=== PATIENT | male | born 1955 | race Hispanic/Latino ===

== ENCOUNTER 2017-08-25 07:59 | Outpatient (CLI) | payer BC | END 2017-08-25 08:00 | disposition home or self-care (01) | LOC: BICMRI 07:59 | PROVIDERS: ATTEND Family Medicine | DX: R51 Headache (principal); M54.2 Cervicalgia; D69.3 Immune thrombocytopenic purpura; M06.9 Rheumatoid arthritis, unspecified | CPT/HCPCS: 70551 ==

== ENCOUNTER 2021-11-20 16:17 | Observation (INO) | payer BC ==
[2021-11-20 16:56] LABS: #Basophils 0.1 thou/uL (0.0-0.2); #Eosinphils 0.2 thou/uL (0.0-0.7); #Monocytes 0.5 thou/uL (0.11-0.59); #Neutrophils 3.4 thou/uL (1.40-6.50); %Basophils 1.2 % (0.0-1.0); %Eosinophils 3.7 % (0.0-10.0); %Lymphocytes 32.1 % (21.0-51.0); Hemoglobin 14.4 g/dL (14.0-18.0); Mean Corpuscular Hemoglobin 30.4 pg (27.0-31.0); Mean Platelet Volume 12.1 fL (7.4-10.4); Platelet Count 126 thou/uL (130-400); RBC Distribution Width 11.8 % (11.5-14.5); Red Blood Cell (RBC) Count 4.75 mill/uL (4.70-6.10); White Blood Cell (WBC) Count 6.1 thou/uL (4.8-10.8)
[2021-11-20 17:18] LABS: Large Platelets SLIGHT; MDiff Complete? YES; RBC Morphology Normal
[2021-11-20 17:19] LABS: ALT (SGPT) 12 U/L (8-55); AST (SGOT) 16 U/L (5-34); Alkaline Phosphatase 76 U/L (40-110); Anion Gap 11 mmol/L (10-20); BUN (Urea Nitrogen) 14 mg/dL (8.4-25.7); Bilirubin, Total 0.6 mg/dL (0.2-1.2); Calc. Creatinine Clearance 0 mL/min (70-130); Calcium 8.9 mg/dL (7.8-10.44); Carbon Dioxide 26 mmol/L (23-31); Chloride 106 mmol/L (98-107); Estimated GFR 82; Globulin 3.5 g/dL (2.4-3.5); Glucose 95 mg/dL (80-115); Potassium 4.4 mmol/L (3.5-5.1); Protein, Total 7.5 g/dL (5.8-8.1); Sodium 139 mmol/L (136-145)
[2021-11-20] MEDS ORDERED: Aspirin Chewable 81 MG TAB ONE (21:32)
[2021-11-20] MEDS ORDERED: Divalproex Sodium 250 MG (DR) TAB ONE (21:44)
[2021-11-20] MEDS ORDERED: levETIRAcetam 500 MG TAB PO SCH (22:00)
[2021-11-20 22:45] LABS: Troponin I Less than 0.010 ng/mL (< 0.028)
[2021-11-20] MEDS ORDERED: Ondansetron PF 4 MG/2 ML Vial IVP PRN (23:12)
[2021-11-20] MEDS ORDERED: Ondansetron ODT 4 MG TAB PO PRN (23:12)
[2021-11-20] MEDS ORDERED: Acetaminophen 325 MG TAB PO PRN (23:12)
[2021-11-20] MEDS ORDERED: Acetaminophen 650 MG Suppository PR PRN (23:12)
[2021-11-21 01:42] VITALS: BMI 27.4
[2021-11-21 01:57] LABS: Troponin I Less than 0.010 ng/mL (< 0.028)
[2021-11-21 05:11] LABS: #Eosinphils 0.2 thou/uL (0.0-0.7); #Monocytes 0.5 thou/uL (0.11-0.59); #Neutrophils 2.2 thou/uL (1.40-6.50); %Basophils 0.9 % (0.0-1.0); %Eosinophils 4.1 % (0.0-10.0); %Monocytes 9.3 % (0.0-10.0); %Neutrophils 44.8 % (42.0-75.0); Hemoglobin 13.8 g/dL (14.0-18.0); Mean Corpuscular HGB CONC 32.5 g/dL (32.0-36.0); Mean Corpuscular Hemoglobin 30.8 pg (27.0-31.0); Mean Platelet Volume 12.5 fL (7.4-10.4); Platelet Count 116 thou/uL (130-400); RBC Distribution Width 11.9 % (11.5-14.5); Red Blood Cell (RBC) Count 4.48 mill/uL (4.70-6.10); White Blood Cell (WBC) Count 4.9 thou/uL (4.8-10.8)
[2021-11-21 05:26] LABS: Anion Gap 15 mmol/L (10-20); BUN (Urea Nitrogen) 16 mg/dL (8.4-25.7); Calc. Creatinine Clearance 80 mL/min (70-130); Carbon Dioxide 23 mmol/L (23-31); Chloride 106 mmol/L (98-107); Potassium 3.7 mmol/L (3.5-5.1); Sodium 140 mmol/L (136-145)
[2021-11-21 05:27] LABS: Calcium 8.4 mg/dL (7.8-10.44); Estimated GFR 86; Glucose 90 mg/dL (80-115)
[2021-11-21] MEDS ORDERED: Enoxaparin Sodium 40 MG/0.4 ML SYRINGE SC SCH (09:00)
[2021-11-21] MEDS ORDERED: levETIRAcetam 500 MG TAB PO SCH ×2 (09:00→21:00)
[2021-11-21 16:50] VITALS: BP 165/78; TEMP 97.7
== END 2021-11-21 17:40 | disposition home or self-care (01) ==
LOC: ERS 16:17 → 2SW 21:57
PROVIDERS: ADMIT Family Medicine; ATTEND Family Medicine
DX: M47.22 Other spondylosis with radiculopathy, cervical region (principal); R00.1 Bradycardia, unspecified; G40.909 Epilepsy, unspecified, not intractable, without status epilepticus; R07.9 Chest pain, unspecified; D69.6 Thrombocytopenia, unspecified; M25.78 Osteophyte, vertebrae; R13.10 Dysphagia, unspecified; I08.3 Combined rheumatic disorders of mitral, aortic and tricuspid valves; M19.90 Unspecified osteoarthritis, unspecified site; E78.5 Hyperlipidemia, unspecified; K21.9 Gastro-esophageal reflux disease without esophagitis; M06.9 Rheumatoid arthritis, unspecified; Z79.899 Other long term (current) drug therapy; Z20.822 Contact with and (suspected) exposure to COVID-19
CPT/HCPCS: 36415; 70450; 72125; 80048; 80053; 84484; 85025; 93005; 93306; 96372; G0378; J1650; U0003; U0005

== ENCOUNTER 2022-06-17 03:56 | Emergency (ER) | payer BC, SELFPAY ==
[2022-06-17] MEDS ORDERED: HYDROcodone/Acetaminophen 5/325 mg Tablet ONE (04:36)
[2022-06-17 05:08] LABS: Hemoglobin 14.7 g/dL (14.0-18.0); Mean Corpuscular HGB CONC 34.3 g/dL (32.0-36.0); Mean Corpuscular Hemoglobin 31.6 pg (27.0-31.0); Mean Corpuscular Volume 92.1 fl (78.0-98.0); RBC Distribution Width 11.9 % (11.5-14.5); Red Blood Cell (RBC) Count 4.65 mill/uL (4.70-6.10); White Blood Cell (WBC) Count 6.2 10x3/uL (4.8-10.8)
[2022-06-17 05:31] LABS: #Eosinphils 0.2 thou/uL (0.0-0.7); #Lymphocytes 2.3 thou/uL (1.20-3.40); #Monocytes 0.5 thou/uL (0.11-0.59); #Neutrophils 3.2 thou/uL (1.40-6.50); %Basophils 0.7 % (0.0-1.0); %Eosinophils 3.6 % (0.0-10.0); %Lymphocytes 36.9 % (21.0-51.0); %Monocytes 7.4 % (0.0-10.0); %Neutrophils 51.3 % (42.0-75.0); Large Platelets SLIGHT; MDiff Complete? YES; Mean Platelet Volume 12.4 fL (7.4-10.4); Platelet Count 120 10x3/uL (130-400); Platelet Morphology Comment Appears Adequate
[2022-06-17 05:33] LABS: ALT (SGPT) 15 U/L (8-55); AST (SGOT) 22 U/L (5-34); Albumin 3.6 g/dL (3.4-4.8); Alkaline Phosphatase 77 U/L (40-110); Anion Gap 14 mmol/L (10-20); BUN (Urea Nitrogen) 22 mg/dL (8.4-25.7); Bilirubin, Total 0.6 mg/dL (0.2-1.2); Calc. Creatinine Clearance 0 mL/min (70-130); Calcium 9.2 mg/dL (7.8-10.44); Carbon Dioxide 24 mmol/L (23-31); Chloride 105 mmol/L (98-107); Estimated GFR 86; Globulin 3.6 g/dL (2.4-3.5); Glucose 92 mg/dL (80-115); Potassium 4.4 mmol/L (3.5-5.1); Protein, Total 7.2 g/dL (5.8-8.1); Sodium 139 mmol/L (136-145)
== END 2022-06-17 06:35 | disposition home or self-care (01) ==
LOC: ERS 03:56
DX: M54.32 Sciatica, left side (principal)
CPT/HCPCS: 36415; 80053; 85025

== ENCOUNTER 2022-07-09 07:55 | Outpatient (CLI) | payer BC | END 2022-07-09 07:56 | disposition home or self-care (01) | LOC: SCSMRI 07:55 | PROVIDERS: ATTEND Family Medicine | DX: M54.40 Lumbago with sciatica, unspecified side (principal); M47.816 Spondylosis without myelopathy or radiculopathy, lumbar region; Z98.890 Other specified postprocedural states | CPT/HCPCS: 72158 ==

== ENCOUNTER 2022-07-27 08:27 | Outpatient (CLI) | payer BC | END 2022-07-27 08:28 | disposition home or self-care (01) | LOC: BICRAD 08:27 | PROVIDERS: ATTEND Neurological Surgery | DX: M47.26 Other spondylosis with radiculopathy, lumbar region (principal); M25.78 Osteophyte, vertebrae | CPT/HCPCS: 72120 ==

== ENCOUNTER 2022-09-02 07:59 | Outpatient (CLI) | payer BC | END 2022-09-02 08:00 | disposition home or self-care (01) | LOC: TBSIIMAG 07:59 | PROVIDERS: ATTEND Neurological Surgery | DX: M48.04 Spinal stenosis, thoracic region (principal); M51.24 Other intervertebral disc displacement, thoracic region | CPT/HCPCS: 72146 ==

== ENCOUNTER 2024-04-01 12:11 | Observation (INO) | payer BC ==
[2024-04-01 13:26] LABS: #Basophils 0.04 10x3/uL (0.0-0.2); %Basophils 0.6 % (0.0-1.0); %Eosinophils 1.8 % (0.0-10.0); %Lymphocytes 27.6 % (21.0-51.0); %Monocytes 5.7 % (0.0-10.0); %Neutrophils 63.8 % (42.0-75.0); Hematocrit 46.5 % (42.0-52.0); Hemoglobin 15.7 g/dL (14.0-18.0); Mean Corpuscular HGB CONC 33.8 g/dL (32.0-36.0); Mean Corpuscular Hemoglobin 30.1 pg (27.0-31.0); Mean Corpuscular Volume 89.1 fL (78.0-98.0); Mean Platelet Volume 13.8 fL (7.4-10.4); Platelet Count 133 10x3/uL (130-400); RBC Distribution Width 12.7 % (11.5-14.5); Red Blood Cell (RBC) Count 5.22 mill/uL (4.70-6.10)
[2024-04-01 13:38] LABS: ALT (SGPT) 11 U/L (8-55); AST (SGOT) 17 U/L (5-34); Albumin 3.7 g/dL (3.4-4.8); Alkaline Phosphatase 72 U/L (40-110); Anion Gap 15 mmol/L (10-20); BUN (Urea Nitrogen) 13 mg/dL (8.4-25.7); Calc. Creatinine Clearance 0 mL/min (70-130); Calcium 8.7 mg/dL (7.8-10.44); Carbon Dioxide 20 mmol/L (23-31); Chloride 107 mmol/L (98-107); Estimated GFR 93; Globulin 3.6 g/dL (2.4-3.5); Glucose 136 mg/dL (80-115); Potassium 3.7 mmol/L (3.5-5.1); Protein, Total 7.3 g/dL (5.8-8.1); Sodium 138 mmol/L (136-145)
[2024-04-01 13:42] LABS: Troponin I Less than 0.010 ng/mL (< 0.028)
[2024-04-01 13:47] LABS: Platelet Adequacy Comment Platelets Normal
[2024-04-01] MEDS ORDERED: Aspirin Chewable 81 MG TAB ONE (14:01)
[2024-04-01] MEDS ORDERED: Calcium Carbonate 500 MG ChewTAB PO PRN (16:31)
[2024-04-01] MEDS ORDERED: Acetaminophen 325 MG TAB PO PRN (16:31)
[2024-04-01] MEDS ORDERED: Senokot S 8.6-50 MG TAB PO PRN (16:31)
[2024-04-01] MEDS ORDERED: Acetaminophen 650 MG Suppository PR PRN (16:31)
[2024-04-01] MEDS ORDERED: Nitroglycerin 0.4 MG TAB (25 Tab Bottle) SL PRN (16:31)
[2024-04-01 17:01] LABS: Magnesium 1.8 mg/dL (1.6-2.6)
[2024-04-01] MEDS: Atorvastatin Calcium 40 MG TAB PO SCH (20:29)
[2024-04-01] MEDS: Divalproex Sodium DR 500 MG TAB PO SCH (20:29)
[2024-04-01] MEDS: levETIRAcetam 500 mg/5 ml Oral Solution PO SCH (20:29)
[2024-04-01 20:42] LABS: Troponin I Less than 0.010 ng/mL (< 0.028)
[2024-04-01 21:17] LABS: Influenza A by NAA Not Detected (NotDetected); Influenza B by NAA Not Detected (NotDetected); RSV by NAA Not Detected (NotDetected); SARS-CoV-2 NAA Rapid Test Not Detected (NotDetected)
[2024-04-02 00:06] LABS: Troponin I Less than 0.010 ng/mL (< 0.028)
[2024-04-02 07:31] LABS: Anion Gap 11 mmol/L (10-20); BUN (Urea Nitrogen) 14 mg/dL (8.4-25.7); Calc. Creatinine Clearance 90 mL/min (70-130); Calcium 8.5 mg/dL (7.8-10.44); Carbon Dioxide 25 mmol/L (23-31); Chloride 106 mmol/L (98-107); Estimated GFR 94; Glucose 97 mg/dL (80-115); Potassium 4.4 mmol/L (3.5-5.1); Sodium 138 mmol/L (136-145)
[2024-04-02 07:32] LABS: #Basophils 0.03 10x3/uL (0.0-0.2); %Basophils 0.5 % (0.0-1.0); %Eosinophils 2.2 % (0.0-10.0); %Lymphocytes 31.6 % (21.0-51.0); %Monocytes 6.9 % (0.0-10.0); %Neutrophils 57.8 % (42.0-75.0); Hematocrit 44.5 % (42.0-52.0); Hemoglobin 14.6 g/dL (14.0-18.0); Mean Corpuscular HGB CONC 32.9 g/dL (32.0-36.0); Mean Corpuscular Hemoglobin 29.7 pg (27.0-31.0); Mean Corpuscular Volume 90.4 fL (78.0-98.0); Platelet Count 130 10x3/uL (130-400); RBC Distribution Width 12.8 % (11.5-14.5); Red Blood Cell (RBC) Count 4.88 mill/uL (4.70-6.10)
[2024-04-02 08:02] VITALS: BP 126/71; TEMP 97.8
[2024-04-02] MEDS: levETIRAcetam 500 MG TAB PO SCH (08:51)
[2024-04-02] MEDS: Enoxaparin 40 MG (0.4 mL) SYRINGE SC SCH (08:55)
[2024-04-02] MEDS: Losartan 25 MG TAB PO SCH (08:55)
[2024-04-02] MEDS: Aspirin Chewable 81 MG TAB PO SCH (08:55)
[2024-04-02] MEDS ORDERED: Aspirin 81 mg Enteric Coated Tablet PO SCH (09:00)
[2024-04-02] MEDS ORDERED: Regadenoson 0.4 MG/5 ML SYRINGE ONE (10:12)
[2024-04-03] MEDS ORDERED: FLU (Fluad Triv) TS24-25 (65UP)/MF59C/PF 45 MCG/0.5 ML Syringe IM ONE (09:00)
== END 2024-04-02 16:02 | disposition home or self-care (01) ==
LOC: ERS 12:11 → ERHOLD 16:01 → OBS 17:19
PROVIDERS: ADMIT Internal Medicine; ATTEND Internal Medicine
DX: R07.89 Other chest pain (principal); R06.02 Shortness of breath; I10 Essential (primary) hypertension; E78.5 Hyperlipidemia, unspecified; R00.1 Bradycardia, unspecified; G40.909 Epilepsy, unspecified, not intractable, without status epilepticus; K21.9 Gastro-esophageal reflux disease without esophagitis; E55.9 Vitamin D deficiency, unspecified; M06.9 Rheumatoid arthritis, unspecified; D69.6 Thrombocytopenia, unspecified; Z98.890 Other specified postprocedural states; Z79.82 Long term (current) use of aspirin; Z79.899 Other long term (current) drug therapy
CPT/HCPCS: 0241U; 36415; 71045; 78452; 80048; 80053; 83735; 83880; 84484; 85025; 85379; 93005; 93017; 96372; A9502; G0378; J1650; J2785

== ENCOUNTER 2024-11-30 08:21 | Outpatient (CLI) | payer MEDICARE | END 2024-11-30 08:22 | disposition home or self-care (01) | LOC: BICCT 08:21 | PROVIDERS: ATTEND Family Medicine | DX: S22.22XG Fracture of body of sternum, subsequent encounter for fracture with delayed healing (principal); R91.1 Solitary pulmonary nodule; J98.4 Other disorders of lung | CPT/HCPCS: 71250 ==